=== PATIENT | female | born 1960 ===

== ENCOUNTER 2025-09-26 13:34 | Outpatient (CLI) | payer MEDICARE, OTHER | END 2025-09-26 13:35 | disposition home or self-care (01) | LOC: MRI 13:34 | PROVIDERS: ATTEND Psychiatry & Neurology Neurology | DX: Z12.2 Encounter for screening for malignant neoplasm of respiratory organs (principal); M54.41 Lumbago with sciatica, right side; M54.42 Lumbago with sciatica, left side; G89.29 Other chronic pain; M54.2 Cervicalgia; F17.210 Nicotine dependence, cigarettes, uncomplicated; M48.02 Spinal stenosis, cervical region; M48.061 Spinal stenosis, lumbar region without neurogenic claudication | CPT/HCPCS: 71271; 72141; 72148 ==